=== PATIENT | female | born 1970 | race Caucasian/White ===

== ENCOUNTER 2024-01-06 14:00 | Outpatient (RCR) | payer MEDICAID, SELFPAY ==
--- NOTE | 2023-12-16 14:28 | PT.ODAYNRPT ---
PT Outpatient Daily Note OP Daily Note Outpatient Physical Therapy Treatment Date: 12/16/23 Visit Reasons: back pain Subjective: Pt c/o minimal LBP, shared that she tries to stay active going for walks and does Yoga. Objective: Please see flow sheet for ther ex list. Assessment: Pt presents with rotation and favors L side during lumbar extension, verbal cues to decrease extension and focus on extending without compensatory movements. Plan: Continue with POc. Assess response to treatment. Length of Time (minutes) of Treatment: 30 Minutes Procedure Charges Therapeutic Exercise 30 minutes: Yes
--- NOTE | 2023-12-19 14:24 | PT.ODAYNRPT ---
PT Outpatient Daily Note OP Daily Note Outpatient Physical Therapy Treatment Date: 12/19/23 Visit Reasons: back pain Subjective: Pt reported minimal soreness after last session. Objective: Please see flow sheet for ther ex list. Assessment: Progression of interventions completed with good tolerance. Plan: Continue with POC. Length of Time (minutes) of Treatment: 30 Minutes Procedure Charges Therapeutic Exercise 30 minutes: Yes
--- NOTE | 2023-12-22 13:58 | PT.ODAYNRPT ---
PT Outpatient Daily Note OP Daily Note Outpatient Physical Therapy Treatment Date: 12/22/23 Visit Reasons: back pain Subjective: Pt's back is a little better. Pt mention she can sit and stand longer with less pain. Objective: Please see flow chart for list of ther ex performed Assessment: tolerate exercises with minimal pain. Increase standing extension reps with less pain reported today Plan: Continue with PT Length of Time (minutes) of Treatment: 30 Minutes Procedure Charges Therapeutic Exercise 30 minutes: Yes
--- NOTE | 2023-12-28 14:24 | PT.ODAYNRPT ---
PT Outpatient Daily Note OP Daily Note Outpatient Physical Therapy Treatment Date: 12/28/23 Visit Reasons: back pain Subjective: Pt seen chiropractor this morning and feels lose. Pt mention chiropractor is impress so far due to noticing her spine more flexibile. Objective: Please see flow chart for list of ther ex performed Assessment: Progressing with exercises and added more core exercises today with good tolerance Plan: Continue with PT Length of Time (minutes) of Treatment: 30 Minutes Procedure Charges Therapeutic Exercise 30 minutes: Yes
--- NOTE | 2023-12-30 14:53 | PT.ODAYNRPT ---
PT Outpatient Daily Note OP Daily Note Outpatient Physical Therapy Treatment Date: 12/30/23 Visit Reasons: back pain Subjective: Pt's back is feeling much better. Pt continues yoga and walking which really helps the back symptoms. Objective: Please see flow chart for list of ther ex performed Assessment: advanced patient to more standing and seated exercises with good tolerance. Pt continues to improve with overall L/S mobility with less pain reported Plan: Continue with PT Length of Time (minutes) of Treatment: 30 Minutes Procedure Charges Therapeutic Exercise 30 minutes: Yes
--- NOTE | 2024-01-04 15:10 | PT.ODAYNRPT ---
PT Outpatient Daily Note OP Daily Note Outpatient Physical Therapy Treatment Date: 01/04/24 Visit Reasons: back pain Subjective: Pt recently seen pain management doctor and refuse shots in her back. Pt is feeling better and will like to stick with physical therapy only. Objective: Please see flow chart for list of ther ex performed Assessment: cues to correct hip hinge exercise to improve form and posterior tilt with end range. Pt continues to improve with overall mobility with less pain reported Plan: Continue with PT Length of Time (minutes) of Treatment: 30 Minutes Procedure Charges Therapeutic Exercise 30 minutes: Yes
--- NOTE | 2024-01-06 14:34 | PT.ODAYNRPT ---
PT Outpatient Daily Note OP Daily Note Outpatient Physical Therapy Treatment Date: 01/06/24 Visit Reasons: back pain Subjective: Pt reports LBP and LE pain has reduced. Pt shared that she continues to do yoga and HEP. Objective: Please see flow sheet for ther ex list. Assessment: Pt demonstrates good technique with hip hinge exercise indicating compliance with HEP. Plan: Continue with POc. Length of Time (minutes) of Treatment: 30 Minutes Procedure Charges Therapeutic Exercise 30 minutes: Yes
== END 2024-01-14 23:59 | disposition home or self-care (01) ==
LOC: CPTX 14:00
PROVIDERS: PCP Family Medicine; Referring Provider Family Medicine; Visit Provider Family Medicine
DX: M54.9 Dorsalgia, unspecified (principal); M79.605 Pain in left leg; R26.2 Difficulty in walking, not elsewhere classified; G89.29 Other chronic pain; M99.03 Segmental and somatic dysfunction of lumbar region
CPT/HCPCS: 97110

== ENCOUNTER 2024-01-25 14:00 | Outpatient (RCR) | payer MEDICAID, SELFPAY ==
--- NOTE | 2024-01-18 12:06 | PT.ODAYNRPT ---
PT Outpatient Daily Note OP Daily Note Outpatient Physical Therapy Treatment Date: 01/18/24 Visit Reasons: BACK PAIN Subjective: Pt mention her right sciatica pain came back over the weekend. Pt was unable to move for 2 days. Objective: Please see flow chart for list of ther ex performed Assessment: modified exercises back to supine with heat. Pt tolerate exercises and reports of less back pain post session Plan: Continue with PT Length of Time (minutes) of Treatment: 30 Minutes Procedure Charges Therapeutic Exercise 30 minutes: Yes
--- NOTE | 2024-01-20 14:37 | PTNOTE_ITS ---
PT Outpatient Daily Note OP Daily Note Outpatient Physical Therapy Treatment Date: 01/20/24 Visit Reasons: BACK PAIN Subjective: Pt's back is better today and wants to attempt exercises performed past few weeks. Objective: Please see flow chart for list of ther ex perfromed Assessment: patient demonstrate less pain prior to PT session today and able to resume pre vious week exercises with good tolerance. Pt able to progress from wall hip hinge to squatting with the wand. Cues to keep knees behind the toes while performing the exercises Plan: Continue with PT Length of Time (minutes) of Treatment: 30 Minutes Procedure Charges Therapeutic Exercise 30 minutes: Yes
--- NOTE | 2024-01-23 15:34 | PT.ODAYNRPT ---
PT Outpatient Daily Note OP Daily Note Outpatient Physical Therapy Treatment Date: 01/23/24 Visit Reasons: BACK PAIN Subjective: Pt reports low back is doing better, just feels sore from quads. Objective: Please see flow sheet for ther ex list. Assessment: Progressed lateral stepping exercise, pt tolerated with muscle fatigue but no pain. Plan: Continue with POC Length of Time (minutes) of Treatment: 30 Minutes Procedure Charges Therapeutic Exercise 30 minutes: Yes
--- NOTE | 2024-01-25 14:36 | PT.ODS1RPT ---
PT OP Progress/Discharge Note Date of Service: 01/25/24 Progress Note/DC Note Progress Note/Discharge Note: Progress Note Patient Information Visit Reasons: BACK PAIN Medical Diagnosis: M99.03 Treatment Dx #1: Back Pain Service Continue Service or Discharge: Continue Service Certification Date Certification Dates: 01/25/24 to 04/24/24 Status Subjective: Pt's back and right leg is feeling better lately. Pt continues yoga at home and has notice she's able to perform ADLs with less limitation. Pt recently seen her provider and wants her to continue physical therapy to work on core strengthening. Objective: L/S AROM: all motions are WNL Hip PROM: all motions are WNL Hip MMTs: grossly 3+/5 Assessment: Pt's overall symptoms and mobility has improved since starting physical therapy allowing her to perform ADLs with less limitation. 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 Plan: Continue with PT/POC and add 8 sessions (2 x wk for 4 wks) Procedure Charges Therapeutic Exercise 30 minutes: Yes
== END 2024-02-14 23:59 | disposition home or self-care (01) ==
LOC: CPTX 14:00
PROVIDERS: PCP Family Medicine; Referring Provider Family Medicine; Visit Provider Family Medicine
DX: M54.9 Dorsalgia, unspecified (principal); M79.605 Pain in left leg; R26.2 Difficulty in walking, not elsewhere classified; G89.29 Other chronic pain; M99.03 Segmental and somatic dysfunction of lumbar region
CPT/HCPCS: 97110

== ENCOUNTER 2024-03-16 11:00 | Outpatient (RCR) | payer MEDICAID, SELFPAY ==
--- NOTE | 2024-02-22 10:55 | PTNOTE_ITS ---
PT Outpatient Daily Note OP Daily Note Outpatient Physical Therapy Treatment Date: 02/22/24 Visit Reasons: Back pain Subjective: Pt's back been feeling much better. 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 Objective: Please see flow chart for list of ther ex performed Assessment: progressing with core exercises with minimal pain reported Plan: Continue with PT Length of Time (minutes) of Treatment: 30 Minutes Procedure Charges Therapeutic Exercise 30 minutes: Yes
--- NOTE | 2024-02-24 09:49 | PT.ODAYNRPT ---
PT Outpatient Daily Note OP Daily Note Outpatient Physical Therapy Treatment Date: 02/24/24 Visit Reasons: Back pain Subjective: Pt's back is better. Pt mentioned she wants to improve her core strength Objective: Please see flow chart for list of ther ex performed Assessment: progressing with core exercises; slight difficulty with derotation exercise due to fatigue Plan: Continue with PT Length of Time (minutes) of Treatment: 30 Minutes Procedure Charges Therapeutic Exercise 30 minutes: Yes
--- NOTE | 2024-02-27 11:09 | PT.ODAYNRPT ---
PT Outpatient Daily Note OP Daily Note Outpatient Physical Therapy Treatment Date: 02/27/24 Visit Reasons: Back pain Subjective: Pt's back feels good no concerns. Pt continues yoga at home. Objective: Please see flow chart for list of ther ex performed Assessment: progressing with core exercises with minimal pain reported Plan: Continue with PT Length of Time (minutes) of Treatment: 30 Minutes Procedure Charges Therapeutic Exercise 30 minutes: Yes
--- NOTE | 2024-03-02 13:25 | PT.ODAYNRPT ---
PT Outpatient Daily Note OP Daily Note Outpatient Physical Therapy Treatment Date: 03/02/24 Visit Reasons: Back pain Subjective: Pt's back is better. Pt notice her mobility in midback is improving; wall angels are getting easier. Objective: Please see flow chart for list of ther ex performed Assessment: tolerate exercises with minimal pain and demonstrate less pain with wall vikas today. Pt is progressing with core exercises Plan: Continue with PT Length of Time (minutes) of Treatment: 30 Minutes Procedure Charges Therapeutic Exercise 30 minutes: Yes
--- NOTE | 2024-03-06 14:30 | PT.ODAYNRPT ---
PT Outpatient Daily Note OP Daily Note Outpatient Physical Therapy Treatment Date: 03/06/24 Visit Reasons: Back pain Subjective: Pt content with current progress mentioned that she has been compliant with HEP and continues to practice her yoga. Objective: Please see flow sheet for ther ex list. Assessment: Progression of intervention completed with good technique and tolerance. Plan: Continue with POC. Length of Time (minutes) of Treatment: 30 Minutes Procedure Charges Therapeutic Exercise 30 minutes: Yes
--- NOTE | 2024-03-09 10:57 | PT.ODAYNRPT ---
PT Outpatient Daily Note OP Daily Note Outpatient Physical Therapy Treatment Date: 03/09/24 Visit Reasons: Back pain Subjective: Pt's back and hip feels good. No new concerns to report. Objective: Please see flow chart for list of ther ex performed Assessment: progressing with back and hip mobility. Added sitting chopping PNF D1, D2 pattern with slight difficulty due to increase spinal pain post exercise Plan: Continue with PT Length of Time (minutes) of Treatment: 30 Minutes Procedure Charges Therapeutic Exercise 30 minutes: Yes
--- NOTE | 2024-03-14 11:40 | PT.ODAYNRPT ---
PT Outpatient Daily Note OP Daily Note Outpatient Physical Therapy Treatment Date: 03/14/24 Visit Reasons: Back pain Subjective: Pt content with current progress of back symptoms, mentioned she continues to be compliant with HEP. Objective: Please see flow sheet for ther ex list. Assessment: Continue focus on improving core strength, exercises completed with minimal muscle soreness but no pain. Plan: Assess for d/c note. Length of Time (minutes) of Treatment: 30 Minutes Procedure Charges Therapeutic Exercise 30 minutes: Yes
--- NOTE | 2024-03-16 11:23 | PT.ODS1RPT ---
PT OP Progress/Discharge Note Date of Service: 03/16/24 Progress Note/DC Note Progress Note/Discharge Note: DC Note Patient Information Visit Reasons: Back pain Medical Diagnosis: M99.03 Treatment Dx #1: Back Pain Service Discharge Date: 03/16/24 Status Subjective: Pt's back and hips are much better. Pt has been able to walk, stand, perform chores, and yoga with less limitation. At this time Pt feels comfortable being release from care with exercises to continue at home. Objective: L/S AROM: all motions are WNL Hip PROM: all motions are WNL Hip MMTs: grossly 4/5 Assessment: Pt demonstrate functional mobility and strength allowing her to resume ADLs, recreational activities, and ambulate with less limitation. Pt has met all set goals in therapy and will no longer benefit from physical therapy. Pt was instructed on HEP last session and educated to continue exercises to maintain overall mobility. Pt perfomed all exercises safely, thank you for your referrals. Plan: D/C home with HEP and follow up with MD REYNOSO Procedure Charges Therapeutic Exercise 30 minutes: Yes
== END 2024-03-16 23:59 | disposition home or self-care (01) ==
LOC: CPTX 11:00
PROVIDERS: PCP Family Medicine; Referring Provider Family Medicine; Visit Provider Family Medicine
DX: M54.9 Dorsalgia, unspecified (principal); M79.605 Pain in left leg; R26.2 Difficulty in walking, not elsewhere classified; G89.29 Other chronic pain; M99.03 Segmental and somatic dysfunction of lumbar region
CPT/HCPCS: 97110